=== PATIENT | male | born 1965 | race Caucasian/White ===

== ENCOUNTER 2017-03-22 16:08 | Emergency (ER) | payer OTHER ==
[~2017-03-22] VITALS: Wt 86.2 kg
[2017-03-22] MEDS ORDERED: NAPROSYN500 MG PO (17:18)
== END 2017-03-22 17:39 | disposition home or self-care (01) ==
LOC: ED 16:08
DX: M70.21 Olecranon bursitis, right elbow (principal); Y93.89 Activity, other specified; F17.200 Nicotine dependence, unspecified, uncomplicated